=== PATIENT | female | born 1990 | race Caucasian/White ===

== ENCOUNTER 2017-04-27 17:29 | Emergency (ER) | payer OTHER ==
[~2017-04-27] VITALS: Ht 157.5 cm; Wt 56.5 kg
[2017-04-27 17:35] VITALS: TEMP 36.6; Ht 157.5 cm; Wt 56.5 kg
[2017-04-27] MEDS ORDERED: ONDANSETRON INJ 2 MG/ML 2 ML VIAL IV STA (17:50)
[2017-04-27] MEDS ORDERED: SODIUM CHLORIDE 0.9% 1000ML 1,000 ML IV STA (17:50)
[2017-04-27] MEDS ORDERED: FAMOTIDINE IV INJ 20 MG in DEXTROSE 5% 100ML 100 ML IV SCH (18:00)
[2017-04-27] MEDS ORDERED: PATIENT'S ALLERGY INFO NEEDS ENTERED SCH ×2 (18:15→18:30)
[2017-04-27] MEDS ORDERED: OPTIRAY 320 IV PRN (18:15)
[2017-04-27] MEDS ORDERED: BCPILLS PO (18:20)
[2017-04-27 19:11] LABS: BASO % 0.2 %; BASO ABS # 0.02 K/uL (0-0.2); EOS % 0.9 %; EOS ABS # 0.09 K/uL (0-0.5); HEMATOCRIT 42.3 % (37-47); IG# 0.01 K/uL (0.00-0.02); LYMPH % 26.1 %; LYMPH ABS # 2.58 K/uL (1.2-3.4); MEAN CELL VOLUME 82.8 fL (80-100); MEAN CORPUSCULAR HEMOGLOBIN 27.4 pg (25-34); MEAN CORPUSCULAR HGB CONC 33.1 g/dl (32-36); MEAN PLATELET VOLUME 9.6 fL (7.4-10.4); MONO % 6.5 %; MONO ABS # 0.64 K/uL (0.11-0.59); NEUT % 66.2 %; NEUT ABS # 6.56 K/uL (1.4-6.5); PLATELET COUNT 282 K/uL (130-400); RED CELL DISTRIBUTION WIDTH CV 14.2 % (11.5-14.5); RED CELL DISTRIBUTION WIDTH SD 43.2 fL (36.4-46.3)
--- NOTE | 2017-04-27 19:28 | EMERGENCY ROOM VISIT NOTE ---
History First contact with patient: 17:38 Chief Complaint: NAUSEA Stated Complaint: ABD PAIN, VOMITING, HAVE UTI Nursing Triage Summary: Pt. reports waking up at midnight with nausea, vomiting and abdominal pain. Went to [facility], diagnosed with UTI and sent to ED. History of Present Illness The patient is a 26 year old female who presents to the Emergency Room with complaints of abdominal pain, nausea/vomiting, and diarrhea. The patient states that she woke up around midnight with pain in her stomach, severe nausea and vomited twice and she has had progressively worsening abdominal pain that time with persistent nausea and some loose stools today. She went to [facility] to be evaluated, she states that they checked her urine and said that she had a UTI with blood in her urine, and sent her to the ED for further workup. The did not give her any medications prior to sending to the ED. She states the abdominal pain is constant, starts in the epigastric area and radiates down towards her belly button and to the sides, as well as pain in the left side of her back, achy, worse with movement, better with rest 5/10. She has not tried any medications for her symptoms today. She denies any fevers or chills, headache, neck pain or stiffness, chest pain, shortness of breath, bloody or black stools, dysuria, vaginal bleeding or abnormal discharge, or rash. Last menstrual period was 04/14, and she denies . She reports a history of cholecystectomy in the past, states "I have had stomach issues ever since my gallbladder surgery" and states she takes TUMS often for her symptoms. Review of Systems A complete 10 point review of systems was reviewed with the patient with pertinent positives and negatives as per history of present illness. All else were negative. Past Medical/Surgical History Cholecystectomy, gastric reflux Social History Smoking Status: Never Smoker Alcohol Use: none Drug Use: none Current/Historical Medications Scheduled Control Pills ( Control Pills), 1 TAB PO DAILY Ciprofloxacin Hcl (Cipro), 500 MG PO BID Allergies Reviewed in chart Physical Exam Vital Signs Date Time Temp Pulse Resp B/P (MAP) Pulse Ox O2 Delivery O2 Flow Rate FiO2 04/27/17 22:09 81 16 114/74 98 Room Air 04/27/17 20:50 97 16 106/61 98 Room Air 04/27/17 18:59 76 16 109/66 100 Room Air 04/27/17 17:35 36.6 89 20 126/71 100 Room Air Physical Exam CONSTITUTIONAL: Pleasant and cooperative. No acute distress, but does appear in pain throughout exam. Mildly dehydrated, but otherwise well appearing and well nourished. HEENT: Normocephalic, atraumatic. Pupils equal, round and reactive to light, EOMI. TMs normal. Pharynx normal. Tacky mucous membranes. NECK: Supple, full active range of motion without discomfort. RESPIRATORY: Clear to auscultation bilaterally with no wheezing, crackles, rhonchi or stridor. Equal expansion bilaterally. CARDIOVASCULAR: Regular rate and rhythm with no murmurs, rubs or gallops. Normal peripheral perfusion. No edema. GASTROINTESTINAL: Abdomen is moderately tender throughout, most tender in the epigastric and periumbilical area. Soft and nondistended. No guarding. Patient reports positive rebound tenderness palpation of the periumbilical region. Negative McBurney's, negative Rovsing. No palpable masses or HSM. Bowel sounds present in all quadrants. + Left CVA tenderness MUSCULOSKELETAL: Full range of motion of all joints without discomfort. INTEGUMENTARY: No rash or other significant dermatologic conditions noted. NEUROLOGIC: Alert and oriented X 4 with normal affect. Normal speech. No focal neurologic deficits noted. Normal strength and sensation in all 4 extremities. Normal gait observed. Medical Decision & Procedures ER Provider Diagnostic Interpretation: CT OF THE ABDOMEN AND PELVIS WITH CONTRAST CLINICAL HISTORY: Left flank pain and vomiting. Urinary tract infection. COMPARISON STUDY: None. TECHNIQUE: Following IV administration of 93 mL of Optiray-320, axial images of the abdomen and pelvis were obtained from the lung bases to the proximal femurs. Images were reviewed in the axial, sagittal, and coronal planes. IV contrast was administered without complication. A dose lowering technique was utilized adhering to the principles of ALARA. CT DOSE: 260.74 mGy.cm FINDINGS: Liver, spleen, adrenal glands, kidneys and pancreas are normal. There is no biliary or pancreatic ductal dilatation. There is no hydronephrosis. Both nephrograms are symmetric. There is no CT evidence of pyelonephritis. No urinary calculi are identified on this contrast enhanced study. Sensitivity for detection of urothelial lesions is diminished given lack of delayed phase imaging. Caliber and wall thickness of small and large bowel are normal. The appendix is not identified but there is no right lower quadrant inflammation. There is no lymphadenopathy. No suspicious skeletal lesions are present. There is no bowel obstruction. IMPRESSION: 1. No acute process within the abdomen or pelvis. 2. Normal CT appearance of the kidneys. No hydronephrosis. No calculi identified on contrast enhanced exam. No evidence for pyelonephritis. Laboratory Results 04/27/17 18:55 Red Blood Count 5.11, Mean Corpuscular Volume 82.8, Mean Corpuscular Hemoglobin 27.4, Mean Corpuscular Hemoglobin Concent 33.1, Mean Platelet Volume 9.6, Neutrophils (%) (Auto) 66.2, Lymphocytes (%) (Auto) 26.1, Monocytes (%) (Auto) 6.5, Eosinophils (%) (Auto) 0.9, Basophils (%) (Auto) 0.2, Neutrophils # (Auto) 6.56, Lymphocytes # (Auto) 2.58, Monocytes # (Auto) 0.64, Eosinophils # (Auto) 0.09, Basophils # (Auto) 0.02 04/27/17 18:55 Test 04/27/17 18:55 White Blood Count 9.90 K/uL (4.8-10.8) Red Blood Count 5.11 M/uL (4.2-5.4) Hemoglobin 14.0 g/dL (12.0-16.0) Hematocrit 42.3 % (37-47) Mean Corpuscular Volume 82.8 fL (80-100) Mean Corpuscular Hemoglobin 27.4 pg (25-34) Mean Corpuscular Hemoglobin Concent 33.1 g/dl (32-36) Platelet Count 282 K/uL (130-400) Mean Platelet Volume 9.6 fL (7.4-10.4) Neutrophils (%) (Auto) 66.2 % Lymphocytes (%) (Auto) 26.1 % Monocytes (%) (Auto) 6.5 % Eosinophils (%) (Auto) 0.9 % Basophils (%) (Auto) 0.2 % Neutrophils # (Auto) 6.56 K/uL (1.4-6.5) Lymphocytes # (Auto) 2.58 K/uL (1.2-3.4) Monocytes # (Auto) 0.64 K/uL (0.11-0.59) Eosinophils # (Auto) 0.09 K/uL (0-0.5) Basophils # (Auto) 0.02 K/uL (0-0.2) RDW Standard Deviation 43.2 fL (36.4-46.3) RDW Coefficient of Variation 14.2 % (11.5-14.5) Immature Granulocyte % (Auto) 0.1 % Immature Granulocyte # (Auto) 0.01 K/uL (0.00-0.02) Urine Color YELLOW Urine Appearance CLEAR (CLEAR) Urine pH 5.0 (4.5-7.5) Urine Specific [place] 1.029 (1.000-1.030) Urine Protein NEG (NEG) Urine Glucose (UA) NEG (NEG) Urine Ketones 1+ (NEG) Urine Occult Blood 1+ (NEG) Urine Nitrite NEG (NEG) Urine Bilirubin NEG (NEG) Urine Urobilinogen NEG (NEG) Urine Leukocyte Esterase SMALL (NEG) Urine WBC (Auto) 10-30 /hpf (0-5) Urine RBC (Auto) 10-30 /hpf (0-4) Urine Hyaline Casts (Auto) 5-10 /lpf (0-5) Urine Epithelial Cells (Auto) >30 /lpf (0-5) Urine Bacteria (Auto) 1+ (NEG) Urine Test NEG (NEG) Anion Gap 4.0 mmol/L (3-11) Est Creatinine Clear Calc Drug Dose 83.7 ml/min Estimated GFR () 116.1 Estimated GFR (Non- 100.2 BUN/Creatinine Ratio 13.1 (10-20) Calcium Level 9.6 mg/dl (8.5-10.1) Total Bilirubin 0.2 mg/dl (0.2-1) Direct Bilirubin < 0.1 mg/dl (0-0.2) Aspartate Amino Transf (AST/SGOT) 17 U/L (15-37) Alanine Aminotransferase (ALT/SGPT) 27 U/L (12-78) Alkaline Phosphatase 78 U/L (45-117) Total Protein 9.0 gm/dl (6.4-8.2) Albumin 4.0 gm/dl (3.4-5.0) Lipase 169 U/L (73-393) Medications Administered Medications (Trade) Dose Ordered Sig/Benita Route Start Time Stop Time Status Last Admin Dose Admin Sodium Chloride 1,000 ml @ 999 mls/hr Q1H1M STAT IV 04/27/17 17:50 04/27/17 18:50 DC 04/27/17 19:01 999 MLS/HR Ondansetron HCl (Zofran Inj) 4 mg NOW STAT IV 04/27/17 17:50 04/27/17 17:54 DC 04/27/17 19:01 4 MG Famotidine 20 mg/ Dextrose 102 ml @ 200 mls/hr Q12H IV 04/27/17 18:00 04/27/17 22:33 DC 04/27/17 19:01 200 MLS/HR Ceftriaxone Sodium (Rocephin Inj) 1 gm NOW STAT IV 04/27/17 21:34 04/27/17 21:38 DC 04/27/17 21:43 1 GM Ketorolac Tromethamine (Toradol Inj) 15 mg NOW STAT IV 04/27/17 21:34 04/27/17 21:38 DC 04/27/17 21:43 15 MG Medical Decision CC: Patient presenting with complaint of abdominal and flank pain, nausea/ vomiting/diarrhea Interpretation of Labs: No leukocytosis, no anemia, no significant loculated abnormalities, normal renal function, normal liver enzymes and lipase. UA consistent with UTI/cystitis, urine negative Differential Diagnosis: Includes, but not limited to gastroenteritis, gastritis , peptic ulcer disease, GERD, UTI, pyelonephritis, ureteral stone, enterocolitis , appendicitis, dehydration, among others. Medication Reconciliation: I attest that I have personally reviewed the patient' s current medication list. Vital signs review: I reviewed the patient's vital signs and interpret them as follows: T: Afebrile; BP: Normotensive; HR: Within normal limits; RR: Within normal limits; Pulse Ox: Within normal limits on room air. Blood pressure screening: The patient was found to have normal blood pressure on screening and does not require follow-up for repeat blood pressure check. Summary: Patient was evaluated at bedside, history and physical exam performed. Patient is alert and oriented, no acute distress but does appear uncomfortable and pain throughout exam. Patient is diffusely tender throughout the abdomen, most tender in the epigastric and periumbilical region, with some questionable rebound tenderness over the right lower quadrant. She also has left flank tenderness and positive CVA tenderness on the left. She appears mildly dehydrated, but is otherwise well-appearing. Given her abdominal and flank pain symptoms with report of blood in the urine, I feel evaluation for ureteral stone is warranted. Orders were placed at bedside for labs, UA, IV fluids for hydration, IV Zofran and Pepcid for nausea and stomach pain, CT abdomen/pelvis to evaluate for ureteral stone, pyelonephritis, appendicitis. Patient was offered something for pain, she states she is comfortable at this time and does not wish to have anything right now. Patient discussed with Dr. Stone, who agrees with my assessment and plan. Labs are as above, unremarkable. UA consistent with UTI, in setting of flank and abdominal pain, will treat for pyelonephritis. Patient was given a dose of IV Rocephin in the ED, Rx for ciprofloxacin sent to the pharmacy. On reassessment, the patient is now asking for something for pain. IV Toradol ordered. CT imaging negative for appendicitis, obstructing ureteral stone or any other acute abnormalities. Patient reassessed multiple times throughout ED stay, she reports improvement in her symptoms. She is tolerating oral fluids without difficulty. I updated the patient on all results and plan for discharge, and encouraged her to follow closely with her primary care provider. I also discussed strict return precautions should her symptoms worsen, she verbalized understanding. Patient was discharged home in stable condition and ambulatory. Impression Primary Impression: Pyelonephritis Departure Information Dispostion Home / Self-Care Condition GOOD Prescriptions Ciprofloxacin Hcl (CIPRO) 500 Mg Tab 500 MG PO BID for 7 Days, #14 TAB Prov: Asya Hurt CRNP 04/27/17 Referrals No Doctor, Assigned (PCP) Patient Instructions ED Kidney Infec Female, My [facility] Additional Instructions You have been treated in the Emergency Department for a Urinary Tract Infection (UTI) and pyelonephritis (kidney infection). You have been prescribed ciprofloxacin to be taken twice a day for 7 days. This is an antibiotic to treat your infection. All antibiotics have the potential to cause diarrhea, you should take a daily probiotic or eat yogurt regularly to help prevent this. Stop this medication and contact a medical provider if you were to develop any significant adverse side effects including: wheezing, shortness of breath, passing out, vomiting, or a diffuse rash. Always take antibiotics as directed and COMPLETE the ENTIRE course regardless of the improvement of your symptoms. For pain, you may take the following [id number] medications: - Tylenol 1000 mg every 8 hours as needed, not more than 3000 mg in 24 hours. - Ibuprofen 600 mg every 6-8 hours as needed, not more than 2400 mg in 24 hours. For past results, you can alternate between the Tylenol and the ibuprofen every 3-4 hours. Drink plenty of fluids to stay well hydrated. Please follow-up with your primary care provider in the next 2-3 days for recheck. Return to the emergency department if your symptoms worsen, including severe worsening abdominal or back pain, severe dizziness or passing out, fevers/chills , persistent nausea/vomiting, large amounts of blood in your urine, if you are unable to urinate for more than 8 hours, or any other concerns. Work Instructions Return To Work: 2 days
[2017-04-27 19:30] LABS: ALT/SGPT 27 U/L (12-78); AST/SGOT 17 U/L (15-37); BLOOD UREA NITROGEN 11 mg/dl (7-18); CALCIUM 9.6 mg/dl (8.5-10.1); CARBON DIOXIDE 29 mmol/L (21-32); CREATININE 0.82 mg/dl (0.60-1.20); GLUCOSE 86 mg/dl (70-99); LIPASE 169 U/L (73-393); POTASSIUM 3.7 mmol/L (3.5-5.1); SODIUM 136 mmol/L (136-145)
[2017-04-27 19:33] LABS: ALKALINE PHOSPHATASE 78 U/L (45-117)
--- NOTE | 2017-04-27 20:56 | DIAGNOSTIC IMAGING REPORT ---
CT OF THE ABDOMEN AND PELVIS WITH CONTRAST CLINICAL HISTORY: Left flank pain and vomiting. Urinary tract infection. COMPARISON STUDY: None. TECHNIQUE: Following IV administration of 93 mL of Optiray-320, axial images of the abdomen and pelvis were obtained from the lung bases to the proximal femurs. Images were reviewed in the axial, sagittal, and coronal planes. IV contrast was administered without complication. A dose lowering technique was utilized adhering to the principles of ALARA. CT DOSE: 260.74 mGy.cm FINDINGS: Liver, spleen, adrenal glands, kidneys and pancreas are normal. There is no biliary or pancreatic ductal dilatation. There is no hydronephrosis. Both nephrograms are symmetric. There is no CT evidence of pyelonephritis. No urinary calculi are identified on this contrast enhanced study. Sensitivity for detection of urothelial lesions is diminished given lack of delayed phase imaging. Caliber and wall thickness of small and large bowel are normal. The appendix is not identified but there is no right lower quadrant inflammation. There is no lymphadenopathy. No suspicious skeletal lesions are present. There is no bowel obstruction. IMPRESSION: 1. No acute process within the abdomen or pelvis. 2. Normal CT appearance of the kidneys. No hydronephrosis. No calculi identified on contrast enhanced exam. No evidence for pyelonephritis. Electronically signed by: Huy Allen M.D. 04/27/2017 8:46 PM Dictated Date/Time: 04/27/2017 8:40 PM
[2017-04-27] MEDS ORDERED: CEFTRIAXONE SOD INJ 1 GM ADDVIAL IV STA (21:34)
[2017-04-27] MEDS ORDERED: KETOROLAC TROMETHAMINE 30 MG/ML VIAL IV STA (21:34)
[2017-04-27] MEDS ORDERED: CIPR-255 PO (21:39)
[2017-04-27 22:09] VITALS: BP 114/74; PULSE 81; O2SAT 98
== END 2017-04-27 22:11 | disposition home or self-care (01) ==
LOC: C.EDB 17:30 → C.EDC 22:11
DX: N12 Tubulo-interstitial nephritis, not specified as acute or chronic (principal); N39.0 Urinary tract infection, site not specified; K21.9 Gastro-esophageal reflux disease without esophagitis; Z79.3 Long term (current) use of hormonal contraceptives

== ENCOUNTER → 2017-06-20 | Outpatient (CLI) | payer OTHER ==
[~2017-06-20] MED LIST: BCPILLS PO; CIPR-255 PO
--- NOTE | 2017-06-20 13:19 | DIAGNOSTIC IMAGING REPORT ---
PELVIC COMPLETE NON OB CLINICAL HISTORY: PELVIC PAIN,DYSURIA PAIN COMPARISON STUDY: None FINDINGS: The uterus measured 7 cm. The endometrial stripe measured 3 mm. The right ovary measured 2 cm maximum dimension with normal vascular flow. The left ovary measured 3.1 cm with normal vascular flow. There is no ultrasonographic evidence of ovarian torsion. It should be noted that ovarian torsion can be present with normal Doppler ultrasonographic findings. There was no evidence of pathologic free pelvic fluid. IMPRESSION: Normal study The above report was generated using voice recognition software. It may contain grammatical, syntax or spelling errors. Electronically signed by: Eric Flower M.D. 06/20/2017 1:18 PM Dictated Date/Time: 06/20/2017 1:17 PM
== END | disposition home or self-care (01) ==
LOC: C.ULTR 12:31
PROVIDERS: ATTEND Family Medicine
DX: R10.2 Pelvic and perineal pain (principal); R30.0 Dysuria

== ENCOUNTER → 2017-06-23 | Outpatient (CLI) | payer OTHER ==
[~2017-06-23] MED LIST changes: +OPTIRAY 300 IV PRN
--- NOTE | 2017-06-23 14:24 | DIAGNOSTIC IMAGING REPORT ---
IV PYELOGRAM CLINICAL HISTORY: Recurrent urinary tract infections. COMPARISON STUDY: Abdominal CT dated 04/27/2017. TECHNIQUE: An abdominal activities assistant radiograph is performed. IVP pyelogram was then performed following the IV administration of 100 cc of Optiray 300, tomographic images are acquired in the corticomedullary and excretory phases of enhancement. Overhead views of the renal collecting system and bladder were obtained in multiple obliquities both pre and post void. FINDINGS: The abdominal activities assistant radiograph shows a nonobstructed abdominal bowel gas pattern. No abnormal abdominal calcifications are identified. The bony structures appear intact. Following contrast administration the kidneys enhance and excrete symmetrically. There is no hydronephrosis. There are no filling defects identified within the renal pelvis or along the course of the ureters to suggest urothelial lesion. The bladder is normal as visualized. There is no significant post void residual. IMPRESSION: Normal IV pyelogram. Electronically signed by: Rafael Doe M.D. 06/23/2017 2:23 PM Dictated Date/Time: 06/23/2017 2:21 PM
== END | disposition home or self-care (01) ==
LOC: C.RAD 12:28
PROVIDERS: ATTEND Family Medicine
DX: R30.0 Dysuria (principal)

== ENCOUNTER 2017-08-26 11:02 | Emergency (ER) | payer OTHER ==
[~2017-08-26] VITALS: Ht 157.5 cm; Wt 55.7 kg
[~2017-08-26 11:02] MED LIST changes: -OPTIRAY 300 IV PRN
[2017-08-26 11:03] VITALS: TEMP 36.8; Ht 157.5 cm; Wt 55.7 kg
[2017-08-26] MEDS ORDERED: SODIUM CHLORIDE 0.9% 1000ML 1,000 ML IV STA (11:46)
[2017-08-26 12:07] LABS: BASO % 0.2 %; BASO ABS # 0.02 K/uL (0-0.2); EOS % 0.2 %; EOS ABS # 0.02 K/uL (0-0.5); HEMATOCRIT 41.7 % (37-47); HEMOGLOBIN 14.1 g/dL (12.0-16.0); IG# 0.02 K/uL (0.00-0.02); LYMPH % 18.5 %; LYMPH ABS # 1.91 K/uL (1.2-3.4); MEAN CELL VOLUME 81.9 fL (80-100); MEAN CORPUSCULAR HEMOGLOBIN 27.7 pg (25-34); MEAN CORPUSCULAR HGB CONC 33.8 g/dl (32-36); MEAN PLATELET VOLUME 9.5 fL (7.4-10.4); MONO % 5.3 %; MONO ABS # 0.55 K/uL (0.11-0.59); NEUT % 75.6 %; NEUT ABS # 7.78 K/uL (1.4-6.5); PLATELET COUNT 330 K/uL (130-400); RED CELL DISTRIBUTION WIDTH CV 14.5 % (11.5-14.5); RED CELL DISTRIBUTION WIDTH SD 43.8 fL (36.4-46.3)
[2017-08-26] MEDS ORDERED: KETOROLAC TROMETHAMINE 30 MG/ML VIAL IV STA (12:07)
[2017-08-26 12:24] LABS: BLOOD UREA NITROGEN 6 mg/dl (7-18); CALCIUM 8.9 mg/dl (8.5-10.1); CARBON DIOXIDE 29 mmol/L (21-32); CREATININE 0.79 mg/dl (0.60-1.20); GLUCOSE 90 mg/dl (70-99); POTASSIUM 3.4 mmol/L (3.5-5.1); SODIUM 138 mmol/L (136-145)
--- NOTE | 2017-08-26 12:26 | DIAGNOSTIC IMAGING REPORT ---
CHEST ONE VIEW PORTABLE HISTORY: 26 years-old Female Chest Pain acute atypical chest pain COMPARISON: CT abdomen and pelvis 04/27/2017 TECHNIQUE: Portable AP view of the chest FINDINGS: Cardiomediastinal and hilar silhouettes are within normal limits. There is no pneumothorax, pleural effusion, focal airspace consolidation or overt pulmonary edema. The bones of the chest appear grossly intact. IMPRESSION: No acute process. The above report was generated using voice recognition software. It may contain grammatical, syntax or spelling errors. Electronically signed by: Yury Lopes M.D. 08/26/2017 12:25 PM Dictated Date/Time: 08/26/2017 12:24 PM
[2017-08-26 12:35] LABS: CKMB < 0.5 ng/ml (0.5-3.6)
[2017-08-26 13:39] VITALS: BP 117/78; PULSE 90; O2SAT 100
--- NOTE | 2017-08-26 14:53 | EMERGENCY ROOM VISIT NOTE ---
History Report prepared by Luis Carlosibkarlos: Óscar Elliott Under the Supervision of: Dr. Abilio Terrazas D.O. First contact with patient: 11:17 Chief Complaint: CARDIAC ASSESSMENT Stated Complaint: CHEST PAIN, RAPID HEART RATE, NOT FEELING WELL History of Present Illness The patient is a 26 year old female who presents to the Emergency Room with complaints of constant chest pain beginning last night. She also complains of "feeling off". She states that she had an episode of heart palpitations (HR up to 129 according to her FitBit) last night before going to bed as well which started her pain. The patient describes her pain as an "ache". She also complains of nausea. She feels that her heart is still racing (HR in the 90's according to her FitBit). No other exacerbating or remitting factors. The patient denies chance of , and is on control. Pt denies headache , change in vision, fevers, shortness of breath, nausea, vomiting, diarrhea, pain with urination, and melena. She notes that she has had a persistent UTI for the past four months which finally resolved last week. She was on Bactrim most recently for this (1 month ago). Patient denies diabetes, hypertension, hyperlipidemia, CAD, or history of sudden at a young age. Patient denies swelling of calves, recent trips, history of immobilization or recent surgery, prior history of DVT, hemoptysis, history of malignancy, or history of smoking. Source of History: patient Onset: Last night Position: chest Quality: ache Timing: constant Associated Symptoms: + nausea, No fevers, No SOB, No vomiting, No melena, No diarrhea, No urinary symptoms Note: Positive: heart palpitations last night. Racing heart. Feeling "off". Review of Systems See HPI for pertinent positives & negatives. A total of 10 systems reviewed and were otherwise negative. Past Medical & Surgical Medical Problems: (1) No Known Active Medical Problems Family History No pertinent family history stated. Social History Smoking Status: Never Smoker Alcohol Use: none Drug Use: none Current/Historical Medications Scheduled Control Pills ( Control Pills), 1 TAB PO DAILY Allergies Coded Allergies: Penicillins (Unverified Allergy, Unknown, HIVES, 08/26/17) Physical Exam Vital Signs Date Time Temp Pulse Resp B/P (MAP) Pulse Ox O2 Delivery O2 Flow Rate FiO2 08/26/17 13:39 90 16 117/78 100 08/26/17 11:55 90 18 113/79 96 Room Air 08/26/17 11:10 99 Room Air 08/26/17 11:03 36.8 97 18 123/87 99 Room Air Physical Exam GENERAL: Sitting up in bed, alert, well appearing, well nourished, no distress, non-toxic EYE EXAM: normal conjunctiva. OROPHARYNX: no exudate, no erythema, lips, buccal mucosa, and tongue normal and mucous membranes are moist NECK: supple, no nuchal rigidity, no adenopathy, non-tender LUNGS: Clear to auscultation. Normal chest wall mechanics HEART: no murmurs, S1 normal and S2 normal ABDOMEN: abdomen soft, non-tender, normo-active bowel sounds, no masses, no rebound or guarding. BACK: Back is symmetrical on inspection and there is no deformity, no midline tenderness, no CVA tenderness. SKIN: no rashes and no bruising UPPER EXTREMITIES: upper extremities are grossly normal. Radial pulses are equal bilaterally. LOWER EXTREMITIES: Calves are equal bilaterally. NEURO EXAM: Normal sensorium, cranial nerves II-XII grossly intact, normal speech, no gross weakness of arms, no gross weakness of legs. Medical Decision & Procedures ER Provider Diagnostic Interpretation: Radiology results as stated below per my review and the radiologist's interpretation: CHEST ONE VIEW PORTABLE FINDINGS: Cardiomediastinal and hilar silhouettes are within normal limits. There is no pneumothorax, pleural effusion, focal airspace consolidation or overt pulmonary edema. The bones of the chest appear grossly intact. IMPRESSION: No acute process. The above report was generated using voice recognition software. It may contain grammatical, syntax or spelling errors. Electronically signed by: Yury Lopes M.D. 08/26/2017 12:25 PM Laboratory Results 08/26/17 11:55 Red Blood Count 5.09, Mean Corpuscular Volume 81.9, Mean Corpuscular Hemoglobin 27.7, Mean Corpuscular Hemoglobin Concent 33.8, Mean Platelet Volume 9.5, Neutrophils (%) (Auto) 75.6, Lymphocytes (%) (Auto) 18.5, Monocytes (%) (Auto) 5.3, Eosinophils (%) (Auto) 0.2, Basophils (%) (Auto) 0.2, Neutrophils # (Auto) 7.78, Lymphocytes # (Auto) 1.91, Monocytes # (Auto) 0.55, Eosinophils # (Auto) 0.02, Basophils # (Auto) 0.02 08/26/17 11:55 Test 08/26/17 11:55 White Blood Count 10.30 K/uL (4.8-10.8) Red Blood Count 5.09 M/uL (4.2-5.4) Hemoglobin 14.1 g/dL (12.0-16.0) Hematocrit 41.7 % (37-47) Mean Corpuscular Volume 81.9 fL (80-100) Mean Corpuscular Hemoglobin 27.7 pg (25-34) Mean Corpuscular Hemoglobin Concent 33.8 g/dl (32-36) Platelet Count 330 K/uL (130-400) Mean Platelet Volume 9.5 fL (7.4-10.4) Neutrophils (%) (Auto) 75.6 % Lymphocytes (%) (Auto) 18.5 % Monocytes (%) (Auto) 5.3 % Eosinophils (%) (Auto) 0.2 % Basophils (%) (Auto) 0.2 % Neutrophils # (Auto) 7.78 K/uL (1.4-6.5) Lymphocytes # (Auto) 1.91 K/uL (1.2-3.4) Monocytes # (Auto) 0.55 K/uL (0.11-0.59) Eosinophils # (Auto) 0.02 K/uL (0-0.5) Basophils # (Auto) 0.02 K/uL (0-0.2) RDW Standard Deviation 43.8 fL (36.4-46.3) RDW Coefficient of Variation 14.5 % (11.5-14.5) Immature Granulocyte % (Auto) 0.2 % Immature Granulocyte # (Auto) 0.02 K/uL (0.00-0.02) D-Dimer < 190 ug/L FEU (0-500) Anion Gap 6.0 mmol/L (3-11) Est Creatinine Clear Calc Drug Dose 86.9 ml/min Estimated GFR () 121.4 Estimated GFR (Non- 104.8 BUN/Creatinine Ratio 8.1 (10-20) Calcium Level 8.9 mg/dl (8.5-10.1) Total Creatine Kinase 80 U/L (26-192) Creatine Kinase MB < 0.5 ng/ml (0.5-3.6) Creatine Kinase MB Ratio (0-3.0) Troponin I < 0.015 ng/ml (0-0.045) Thyroid Stimulating Hormone (TSH) 2.230 uIu/ml (0.300-4.500) Laboratory results per my review. Medications Administered Medications (Trade) Dose Ordered Sig/Benita Route Start Time Stop Time Status Last Admin Dose Admin Sodium Chloride 1,000 ml @ 999 mls/hr Q1H1M STAT IV 08/26/17 11:46 08/26/17 12:46 DC 08/26/17 11:46 999 MLS/HR ECG Per My Interpretation Indication: chest pain Rate (beats per minute): 83 Rhythm: sinus rhythm Findings: other (Normal axis. No PVCs. ) ED Course ED COURSE: Vital signs were reviewed and appeared normal. The patients medical record was reviewed The above diagnostic studies were performed and reviewed. ED treatments and interventions as stated above. 1121: The patient was evaluated in room C10. A complete history and physical examination was performed. 1146: Ordered Sodium Chloride 1000 ml @ 999 mls/hr IV. 1207: Ordered Toradol Inj 30 mg IV. 1317: Upon reevaluation, the patient is resting comfortably. I discussed my findings with the patient and she understands and agrees with the treatment plan. Based on the patients age, coexisting illnesses, exam and lab findings the decision to treat as an outpatient was made. The patient remained stable while under my care. The patient appeared well at the time of discharge. Medical Decision Differential diagnoses includes but is not limited to pneumonia, bronchitis, COPD/Asthma exacerbation, pneumothorax, pulmonary embolism, congestive heart failure, acute coronary syndrome. Patient is a 26-year-old female with no significant past medical history the presents the ER for palpitations and chest pain which has been present since late last night. No other exacerbating or remitting factors. She notes she still has the symptoms currently. EKG shows a normal sinus rhythm without ectopy. Troponin was negative with pain that has been present for greater than 8 hours. D-dimer was negative. Chest x-ray unremarkable. Patient was updated at bedside was discharged to follow-up with PCP as an outpatient. I do not feel as though this is cardiac. She had no cardiac or PE risk factors. Nothing to suggest arrhythmia. Uncertain of the true etiology but she was discharged follow-up with PCP as an outpatient. Discussed with Pt concerning signs and symptoms to watch out for. Pt was instructed to follow up with their PCP and discussed with the patient their option to return to the ED at anytime for persistent or worsening symptoms. The appropriate anticipatory guidance and out-patient management, including indications for return to the emergency department, were explained at length to the patient and understood. Medication Reconcilliation Current Medication List: was personally reviewed by me Blood Pressure Screening Patient's blood pressure: Normal blood pressure Blood pressure disposition: Did not require urgent referral Impression Primary Impression: Palpitations Additional Impression: Chest pain Scribe Attestation The scribe's documentation has been prepared under my direction and personally reviewed by me in its entirety. I confirm that the note above accurately reflects all work, treatment, procedures, and medical decision making performed by me. Departure Information Dispostion Home / Self-Care Referrals Beny Wen DO (PCP) Forms IMPORTANT VISIT INFORMATION Patient Instructions Chest Pain - [facility], [facility] Additional Instructions Please follow up with your primary care doctor with in the next 24 hours. Any worsening of your symptoms, please return to the ED immediately. This includes any fevers greater than 100.4, worsening pain, chest pain, passing out, heart racing, shortness breath, persistent nausea, vomiting, unable to eat or drink, or any other concerning signs or symptoms from your standpoint. Problem Qualifiers Additional Impression: Chest pain Chest pain type: unspecified Qualified Codes: R07.9 - Chest pain, unspecified
== END 2017-08-26 13:40 | disposition home or self-care (01) ==
LOC: C.EDB 11:03 → C.EDC 13:40
DX: R00.2 Palpitations (principal); R07.9 Chest pain, unspecified; Z79.3 Long term (current) use of hormonal contraceptives; Z88.0 Allergy status to penicillin

== ENCOUNTER 2022-07-06 08:51 | Inpatient (IN) ==
[2022-07-06] MEDS ORDERED: OXYTOCIN 30 UNITS/500 ML BAG IV PRN ×2 (09:33→09:40)
[2022-07-06] MEDS ORDERED: LIDOCAINE 1% LOCAL 20 ML VIAL INFIL PRN (09:33)
--- NOTE | 2022-07-06 09:35 | History & Physical Report ---
Date of Service July 06, 2022 Assessment & Plan (1) with 37 weeks completed gestation: (2) PROM (premature rupture of membranes): Plan fetus category one. no labor, minimal contractions. Offered expectant management for 6 hours +/- po cytotec or starting pitocin now. patient would like to do cytotec and ambulate for now. Understands may need to consider pitocin if no progress. History of Present Illness Chief Complaint: lof Primary Care Provider: Beny Rubio DO Patient is a 31yowf with iup at 37 4/7 weeks who presents to labor and delivery complaining of lof starting at 7am, clear, copious. no real contractions. +fm. and Delivery Plans +Covid 06/19/22, sx's began 06/11/22 Velamentous Cord Insertion (RESOLVED) *Growth US Q4wks @28wks *Weekly NSTs @36wks *[place]FM consult (04/02/22 @ [facility] [place]not velamentous, is posterior plac w/ anterior succenturiate lobe -Repeat growth US in 4 weeks. OB Labs: Blood Type O Positive 12/12/21 Antibody Screen NEGATIVE 12/12/21 Hemoglobin 10.7 g/dl (12.0-16.0) L 05/06/22 Hematocrit 33.0 % (34.1-44.9) L 05/06/22 Mean Corpuscular Volume 81.4 fL (80.0-100.0) 12/12/21 Platelet Count 305 K/uL (130-400) 12/12/21 Varicella-Zoster IgG Antibody 2228.00 INDEX 12/31/18 Rubella IgG Antibody Immune (Immune) 12/12/21 Rapid Plasma Reagin Nonreactive (Nonreactive) 12/12/21 Hepatitis B Surface Antigen. NON-REACTIVE (NON-REACTIVE) 12/12/21 Hepatitis C Antibody (EIA) NON-REACTIVE (NON-REACTIVE) 12/12/21 HIV (1&2) Ag and Ab Confirmation NON-REACTIVE (NON-REACTIVE) 12/12/21 Glucose 1 Hour 50 gm Load 137 mg/dl (70-130) H 05/06/22 Maternal Serum Alpha Fetoprotein 57.9 ng/mL 02/11/22 OB Optional Labs: Chlamydia trachomatis RNA NOT DETECTED (NOT DETECTED) 12/12/21 Neisseria gonorrhoeae RNA NOT DETECTED (NOT DETECTED) 12/12/21 Thyroid Stimulating Hormone (TSH) 1.220 uIu/ml (0.300-4.500) 07/13/20 Alpha Fetoprotein Triple Screen SEE NOTE 02/11/22 Labs Reviewed: afp neg--[facility] low risk panorama--[facility] cf/sma neg--[facility] gbs neg Allergies Allergy/AdvReac Type Severity Reaction Status Date / Time Penicillins Allergy Intermediate HIVES Verified 07/06/22 09:14 Home Medications Medication Instructions Recorded Confirmed Type cetirizine [Zyrtec] 1 tab PO DAILY 04/11/20 07/06/22 History albuterol sulfate 90 mcg/actuation 2 puff inhalation Q4H PRN 08/04/20 07/06/22 Rx aerosol inhaler shortness of breath #1 inhaler prenat.vits,malia,[id number] 1 tab PO DAILY 12/07/21 07/06/22 History Patient History Medical History Acid reflux Syncope and collapse Tension headache, chronic Surgical History History of cholecystectomy History of esophagogastroduodenoscopy (EGD) [place] teeth extracted Family History Grandmother (Paternal) Breast cancer Grandfather (Maternal) Myocardial infarction Family history of diabetes mellitus Mother Thyroid disease Other No family history of adverse response to anesthesia Denies family history of Ovarian cancer Prostate cancer Lung cancer Colorectal cancer Social History Smoking Status: Never smoker Tobacco Type: Cigarettes Second Hand Exposure: No; Hx Alcohol Use: No Hx Substance Use: No Preferred Language: Urdu Communication Ability: Effective Visual Impairment: Limited Hearing Ability: Normal Feather Stitcher Required: No Beliefs That Will Affect Care: None marital status: marital status details: [place] (29) [phone] Current Living Situation: Spouse Current Living Situation Comment: LIVES WITH SPOUSE, 1 cat, spouse to change litter. current occupational status: employed current occupation: [employer] How many Children do You have: 0 Feels Safe at Home: Yes Childhood Exposure to Second-Hand Smoke: No caffeine: No Dental Care, Regularly: Yes Physical Activity Frequency: 1-2 Times per Week Seatbelt Use: always Sunscreen Use: Yes Assistive Devices: Glasses OB History g1--present CHIEF PILOT History noncontributory Physical Exam Constitutional: WD/WN, vitals as above Gastrointestinal (Abdomen): soft, gravid, nt Psychiatric: A+Ox3, euthymic affect Genitourinary: patient sitting on a soaked chux cx--1/l/h toco--leonard efm--150s with mod variability, accels to 170s, no decels Results & Data Vital Signs (Past 12 Hours) Vital Signs Pulse BP 07/06/22 09:05 102 H 125/80 Coding Level of Care Code None Diagnoses with 37 weeks completed gestation Z3A.37 PROM (premature rupture of membranes) O42.90
[2022-07-06] MEDS ORDERED: miSOPROStoL 50 MCG TAB PO ONE (09:46)
[2022-07-06 10:06] LABS: Hemoglobin 11.7 g/dl (12.0-16.0); Mean Corpuscular Hemoglobin 26.7 pg (25.0-34.0); Mean Corpuscular Hgb Conc 32.5 g/dL (32.0-36.0); Mean Platelet Volume 10.7 fL (9.4-12.4); Platelet Count 247 K/uL (130-400); RDW Coefficient of Variation 15.2 % (11.5-14.5); RDW Standard Deviation 45.9 fL (36.4-46.3); Red Blood Count 4.39 M/uL (4.20-5.40); White Blood Count 12.33 K/ul (4.8-10.8)
--- NOTE | 2022-07-06 13:43 | Labor Progress Brief Note ---
Date of Service July 06, 2022 Subjective Patient notes more contractions, some are more painful Assessment & Plan (1) PROM (premature rupture of membranes): (2) with 37 weeks completed gestation: Plan Good response to cytotec. Offered expectant management vs. pitocin. Ok to proceed with pit. epidural on demand. fetus category one. anticipate . Admission and Anticipated Discharge Date Admission Date: July 06, 2022 Physical Exam Physical Exam: cx--2-3/75/-2 toco--q66-4rpg efm--140s with mod variabiltiy, accels to 160s, no decels Results & Data Vital Signs (Past 12 Hours) Vital Signs Temp Pulse Resp BP 07/06/22 09:20 36.8 C 102 H 20 125/80 07/06/22 13:33 87 07/06/22 13:33 123/78 07/06/22 12:15 18 07/06/22 12:15 36.6 C 18 07/06/22 11:15 18 07/06/22 11:15 36.7 C 18 07/06/22 10:15 18 07/06/22 10:15 36.7 C 18 07/06/22 10:16 91 H 07/06/22 10:16 126/75 07/06/22 09:05 36.9 C 102 H 20 125/80 Coding Level of Care Code None Diagnoses PROM (premature rupture of membranes) O42.90 with 37 weeks completed gestation Z3A.37
[2022-07-06] MEDS: LACTATED RINGER'S 1,000 ML IV PRN ×3 (14:30→20:42)
[2022-07-06] MEDS ORDERED: ePHEDrine sulfate 50 MG/ML AMP ONE (16:06)
[2022-07-06] MEDS ORDERED: fentaNYL citrate PF 100 MCG/2 ML VIAL ONE (16:06)
[2022-07-06] MEDS ORDERED: fentaNYL 2MCG/ML ROPIVACAINE 1.25MG/ML 100 ML BAG EPI ONE (16:07)
[2022-07-06] MEDS ORDERED: LIDOCAINE 2%/EPINEPHRINE 1:200,000 20 ML PF ONE (16:07)
[2022-07-06] MEDS ORDERED: SODIUM CHLORIDE 0.9% PF INJ 10 ML VIAL ONE (16:07)
[2022-07-06] MEDS ORDERED: BUPIVACAINE 0.25% PF 30 ML VIAL ONE (16:07)
--- NOTE | 2022-07-06 17:21 | Anesthesiology Consultation ---
Date of Service July 06, 2022 Assessment & Plan Chart Review Chart Review: Acceptable Risk for Labor Epidural Consults Requested none History Height/Weight Height: 5 ft 2 in Weight: 71.214 kg Allergies Allergy/AdvReac Type Severity Reaction Status Date / Time Penicillins Allergy Intermediate HIVES Verified 07/06/22 09:14 Medications Home Medications Medication Instructions Recorded Confirmed Last Taken cetirizine [Zyrtec] 1 tab PO DAILY 04/11/20 07/06/22 07/05/22 18:00 albuterol sulfate 90 mcg/actuation 2 puff inhalation Q4H PRN 08/04/20 07/06/22 Unknown aerosol inhaler shortness of breath #1 inhaler prenat.vits,malia,[id number] 1 tab PO DAILY 12/07/21 07/06/22 07/05/22 18:00 Active Medications Generic Name Dose Route Start Last Admin Trade Name Freq PRN Reason Stop Dose Admin Lactated Ringer's 1,000 mls @ 125 mls/hr 07/06/22 09:33 07/06/22 16:27 Lr IV 07/08/22 09:32 125 mls/hr .Q8H PRN Administration L&D Protocol Protocol Oxytocin 30 units in 500 mls @ 6 mls/hr 07/06/22 09:40 07/06/22 17:00 Pitocin IV 07/08/22 09:39 0.48 units/hr .Q24H PRN 8 mls/hr Labor Induction/Augmentation Titration Protocol 0.36 UNITS/HR Past Medical History Medical History Acid reflux Syncope and collapse Tension headache, chronic Past Family History Family History Grandmother (Paternal) Breast cancer Grandfather (Maternal) Myocardial infarction Family history of diabetes mellitus Mother Thyroid disease Other No family history of adverse response to anesthesia Denies family history of Ovarian cancer Prostate cancer Lung cancer Colorectal cancer Past Surgical History Surgical History History of cholecystectomy History of esophagogastroduodenoscopy (EGD) [place] teeth extracted Social History Smoking Status: Never smoker Hx Alcohol Use: No alcohol intake frequency: holidays/special occasions only Hx Substance Use: No substance use type: does not use Physical Exam Vital Signs Last Vital Signs Temp 37.1 C 07/06/22 16:25 Pulse 92 H 07/06/22 17:19 Resp 18 07/06/22 16:25 BP 110/65 07/06/22 17:16 Pulse Ox 93 07/06/22 17:19 Testing Laboratory Results 07/06/22 09:37 Blood Type O Positive 07/06/22 09:37 Antibody Screen NEGATIVE 07/06/22 09:37
[2022-07-06] MEDS ORDERED: ePHEDrine sulfate 50 MG/ML AMP IV PRN (17:32)
[2022-07-06] MEDS ORDERED: NALBUPHINE HCL INJ 10 MG/ML AMP IV PRN (17:32)
[2022-07-06] MEDS ORDERED: NALOXONE HCL 1 MG in SODIUM CHLORIDE 0.9% 1000ML 1,000 ML IV PRN (17:32)
[2022-07-06] MEDS ORDERED: diphenhydrAMINE 50 MG/ML VIAL IV PRN (17:32)
[2022-07-06] MEDS ORDERED: ONDANSETRON INJ 2 MG/ML 2 ML VIAL IV PRN (17:32)
[2022-07-06] MEDS ORDERED: fentaNYL 2MCG/ML ROPIVACAINE 1.25MG/ML 100 ML BAG EPI PRN (17:32)
[2022-07-06] MEDS ORDERED: NALOXONE HCL 0.4 MG/1 ML VIAL/CARP IV PRN (17:32)
--- NOTE | 2022-07-06 17:58 | Labor Progress Brief Note ---
Date of Service July 06, 2022 Subjective comfortable with epidural Assessment & Plan (1) PROM (premature rupture of membranes): (2) with 37 weeks completed gestation: Plan continue current management. Fetus category one. anticipate . Admission and Anticipated Discharge Date Admission Date: July 06, 2022 Physical Exam Physical Exam: cx--/-3 toco--q2-3min, pit at 8 efm--140s with mod variability, accels present, no decels Results & Data Vital Signs (Past 12 Hours) Vital Signs Temp Pulse Resp BP Pulse Ox 07/06/22 09:20 36.8 C 102 H 20 125/80 07/06/22 17:54 93 07/06/22 17:54 89 07/06/22 17:49 93 07/06/22 17:50 94 07/06/22 17:49 95 H 07/06/22 17:50 98 H 07/06/22 17:44 93 07/06/22 17:44 89 07/06/22 17:44 114/68 07/06/22 17:39 93 07/06/22 17:39 92 H 07/06/22 17:34 93 07/06/22 17:35 94 07/06/22 17:34 97 H 07/06/22 17:35 88 07/06/22 17:29 94 07/06/22 17:29 96 H 07/06/22 17:15 18 07/06/22 17:15 37.5 C 18 07/06/22 17:28 96 H 07/06/22 17:28 117/71 07/06/22 17:24 93 07/06/22 17:24 88 07/06/22 17:21 94 07/06/22 17:21 88 07/06/22 17:19 93 07/06/22 17:19 92 H 07/06/22 17:16 92 H 07/06/22 17:16 110/65 07/06/22 17:14 94 07/06/22 17:14 95 H 07/06/22 17:14 94 07/06/22 17:14 99 H 07/06/22 17:09 94 07/06/22 17:09 104 H 07/06/22 17:06 94 07/06/22 17:06 93 H 07/06/22 17:06 121/59 L 03/18/23 17:04 94 07/06/22 17:04 89 07/06/22 17:01 93 H 07/06/22 17:01 141/68 H 07/06/22 17:00 94 07/06/22 17:00 93 H 07/06/22 17:00 137/81 07/06/22 16:59 96 07/06/22 16:59 100 H 07/06/22 16:54 97 07/06/22 16:54 95 H 07/06/22 16:49 95 07/06/22 16:49 99 H 07/06/22 16:48 94 07/06/22 16:48 92 H 07/06/22 16:44 94 07/06/22 16:44 91 H 07/06/22 16:25 18 07/06/22 16:25 37.1 C 18 07/06/22 16:41 94 07/06/22 16:41 94 H 07/06/22 16:39 94 07/06/22 16:39 96 H 07/06/22 16:34 94 07/06/22 16:34 93 H 07/06/22 16:29 94 07/06/22 16:29 96 H 07/06/22 16:24 95 07/06/22 16:24 101 H 07/06/22 16:25 94 H 07/06/22 16:25 125/76 07/06/22 16:24 94 07/06/22 16:24 98 H 07/06/22 15:27 18 07/06/22 15:27 36.8 C 18 07/06/22 15:27 92 H 07/06/22 15:27 125/74 07/06/22 14:35 18 07/06/22 14:35 36.8 C 18 07/06/22 14:35 97 H 07/06/22 14:35 134/78 07/06/22 13:32 18 07/06/22 13:32 36.8 C 18 07/06/22 13:33 87 07/06/22 13:33 123/78 07/06/22 12:15 18 07/06/22 12:15 36.6 C 18 07/06/22 11:15 18 07/06/22 11:15 36.7 C 18 07/06/22 10:15 18 07/06/22 10:15 36.7 C 18 07/06/22 10:16 91 H 07/06/22 10:16 126/75 07/06/22 09:05 36.9 C 102 H 20 125/80 Coding Level of Care Code None Diagnoses PROM (premature rupture of membranes) O42.90 with 37 weeks completed gestation Z3A.37
--- NOTE | 2022-07-06 21:30 | Labor Progress Brief Note ---
Date of Service July 06, 2022 Subjective comfortable [facility] bladder pressure Assessment & Plan (1) with 37 weeks completed gestation: (2) PROM (premature rupture of membranes): Plan Making progress. fetus reassuring category 2. head very applied to cervix, so suspect mostly early . anticipate . Admission and Anticipated Discharge Date Admission Date: July 06, 2022 Physical Exam Physical Exam: cx--7-8/100/-1 toco--q2-4min, pit at 9 efm--130s with mod variabiltiy, small accels, variable/early with contractions Results & Data Vital Signs (Past 12 Hours) Vital Signs Temp Pulse Resp BP Pulse Ox 07/06/22 21:24 94 07/06/22 21:24 77 07/06/22 21:19 95 07/06/22 21:19 73 07/06/22 21:14 94 07/06/22 21:14 83 07/06/22 21:12 86 07/06/22 21:12 103/61 07/06/22 21:09 94 07/06/22 21:09 87 07/06/22 21:04 94 07/06/22 21:04 86 07/06/22 20:00 16 07/06/22 20:00 36.8 C 16 07/06/22 20:59 95 07/06/22 20:59 78 07/06/22 20:57 85 07/06/22 20:57 107/64 07/06/22 20:54 95 07/06/22 20:54 79 07/06/22 20:49 95 07/06/22 20:49 77 07/06/22 20:44 95 07/06/22 20:44 84 07/06/22 20:42 84 07/06/22 20:42 111/62 07/06/22 20:39 95 07/06/22 20:39 82 07/06/22 20:34 95 07/06/22 20:34 79 07/06/22 20:29 95 07/06/22 20:29 81 07/06/22 20:27 80 07/06/22 20:27 116/66 07/06/22 20:24 95 07/06/22 20:24 83 07/06/22 20:19 94 07/06/22 20:19 84 07/06/22 20:14 97 07/06/22 20:14 82 07/06/22 20:09 94 07/06/22 20:09 79 07/06/22 20:04 95 07/06/22 20:04 84 07/06/22 19:59 94 07/06/22 19:59 82 07/06/22 19:57 83 07/06/22 19:57 127/73 07/06/22 19:54 94 07/06/22 19:54 96 H 07/06/22 19:49 94 07/06/22 19:50 93 07/06/22 19:49 90 07/06/22 19:50 85 07/06/22 19:44 94 07/06/22 19:44 83 07/06/22 19:43 93 07/06/22 19:43 88 07/06/22 19:43 110/61 07/06/22 19:39 94 07/06/22 19:39 85 07/06/22 19:36 93 07/06/22 19:36 92 H 07/06/22 19:34 95 07/06/22 19:34 79 07/06/22 19:29 94 07/06/22 19:29 89 07/06/22 19:27 76 07/06/22 19:27 111/66 07/06/22 19:24 94 07/06/22 19:24 78 07/06/22 19:19 94 07/06/22 19:19 81 07/06/22 19:00 16 07/06/22 19:00 36.8 C 16 07/06/22 19:14 93 07/06/22 19:15 93 07/06/22 19:14 84 07/06/22 19:15 87 07/06/22 19:12 83 07/06/22 19:12 131/77 07/06/22 19:09 95 07/06/22 19:09 78 07/06/22 19:07 93 07/06/22 19:07 78 07/06/22 19:04 94 07/06/22 19:04 76 07/06/22 19:02 94 07/06/22 19:02 76 07/06/22 18:59 94 07/06/22 18:59 75 07/06/22 18:56 94 07/06/22 18:56 80 0318/23 18:57 79 07/06/22 18:57 130/73 07/06/22 18:54 94 07/06/22 18:54 86 07/06/22 18:51 94 07/06/22 18:51 85 07/06/22 18:49 93 07/06/22 18:49 83 07/06/22 18:45 18 07/06/22 18:45 36.7 C 18 07/06/22 18:45 94 07/06/22 18:45 80 07/06/22 18:44 92 07/06/22 18:44 92 H 07/06/22 18:42 90 07/06/22 18:42 124/72 07/06/22 18:39 93 07/06/22 18:39 87 07/06/22 18:34 94 07/06/22 18:34 89 07/06/22 18:29 94 07/06/22 18:29 81 07/06/22 18:28 82 07/06/22 18:28 122/71 07/06/22 18:27 94 07/06/22 18:27 87 07/06/22 18:24 94 07/06/22 18:24 85 07/06/22 18:19 94 07/06/22 18:19 80 07/06/22 18:15 94 07/06/22 18:15 81 07/06/22 18:14 94 07/06/22 18:14 86 07/06/22 18:12 77 07/06/22 18:12 115/70 07/06/22 18:09 94 07/06/22 18:09 81 07/06/22 17:57 18 07/06/22 17:57 36.9 C 18 07/06/22 18:06 94 07/06/22 18:06 82 07/06/22 18:04 93 07/06/22 18:04 79 07/06/22 17:59 94 07/06/22 17:59 81 07/06/22 17:58 80 07/06/22 17:58 116/70 07/06/22 17:54 93 07/06/22 17:54 89 07/06/22 17:49 93 07/06/22 17:50 94 07/06/22 17:49 95 H 07/06/22 17:50 98 H 07/06/22 17:44 93 07/06/22 17:44 89 07/06/22 17:44 114/68 07/06/22 17:39 93 07/06/22 17:39 92 H 07/06/22 17:34 93 07/06/22 17:35 94 07/06/22 17:34 97 H 07/06/22 17:35 88 07/06/22 17:29 94 07/06/22 17:29 96 H 07/06/22 17:15 18 07/06/22 17:15 37.5 C 18 07/06/22 17:28 96 H 07/06/22 17:28 117/71 07/06/22 17:24 93 07/06/22 17:24 88 07/06/22 17:21 94 07/06/22 17:21 88 07/06/22 17:19 93 07/06/22 17:19 92 H 07/06/22 17:16 92 H 07/06/22 17:16 110/65 07/06/22 17:14 94 07/06/22 17:14 95 H 07/06/22 17:14 94 07/06/22 17:14 99 H 07/06/22 17:09 94 07/06/22 17:09 104 H 07/06/22 17:06 94 07/06/22 17:06 93 H 07/06/22 17:06 121/59 L 07/06/22 17:04 94 07/06/22 17:04 89 07/06/22 17:01 93 H 07/06/22 17:01 141/68 H 07/06/22 17:00 94 07/06/22 17:00 93 H 07/06/22 17:00 137/81 07/06/22 16:59 96 07/06/22 16:59 100 H 07/06/22 16:54 97 07/06/22 16:54 95 H 07/06/22 16:49 95 07/06/22 16:49 99 H 07/06/22 16:48 94 07/06/22 16:48 92 H 07/06/22 16:44 94 07/06/22 16:44 91 H 07/06/22 16:25 18 07/06/22 16:25 37.1 C 18 07/06/22 16:41 94 07/06/22 16:41 94 H 07/06/22 16:39 94 07/06/22 16:39 96 H 07/06/22 16:34 94 07/06/22 16:34 93 H 07/06/22 16:29 94 07/06/22 16:29 96 H 07/06/22 16:24 95 07/06/22 16:24 101 H 07/06/22 16:25 94 H 07/06/22 16:25 125/76 07/06/22 16:24 94 07/06/22 16:24 98 H 07/06/22 15:27 18 07/06/22 15:27 36.8 C 18 07/06/22 15:27 92 H 07/06/22 15:27 125/74 07/06/22 14:35 18 07/06/22 14:35 36.8 C 18 07/06/22 14:35 97 H 07/06/22 14:35 134/78 07/06/22 13:32 18 07/06/22 13:32 36.8 C 18 07/06/22 13:33 87 07/06/22 13:33 123/78 07/06/22 12:15 18 07/06/22 12:15 36.6 C 18 07/06/22 11:15 18 07/06/22 11:15 36.7 C 18 07/06/22 10:15 18 07/06/22 10:15 36.7 C 18 07/06/22 10:16 91 H 07/06/22 10:16 126/75 Coding Level of Care Code None Diagnoses with 37 weeks completed gestation Z3A.37 PROM (premature rupture of membranes) O42.90
--- NOTE | 2022-07-07 00:07 | Labor Progress Brief Note ---
Date of Service July 07, 2022 Subjective patient has started to push Assessment & Plan (1) with 37 weeks completed gestation: Plan continue second stage. fetus reassuring. anticipate . Admission and Anticipated Discharge Date Admission Date: July 06, 2022 Physical Exam Physical Exam: cx--c/c/+2 toco--q2-3min efm--120s wtih mod variability, variables with pushing Results & Data Vital Signs (Past 12 Hours) Vital Signs Temp Pulse Resp BP Pulse Ox 07/06/22 22:05 36.9 C 16 07/07/22 00:02 108 H 90 07/06/22 23:59 97 07/06/22 23:59 110 H 07/06/22 23:57 93 07/06/22 23:57 112 H 07/06/22 23:57 120/66 07/06/22 23:54 100 07/06/22 23:54 129 H 07/06/22 23:52 91 07/06/22 23:52 98 H 07/06/22 23:49 98 07/06/22 23:49 100 H 07/06/22 23:44 95 07/06/22 23:44 107 H 07/06/22 23:42 96 H 07/06/22 23:42 118/75 07/06/22 23:39 95 07/06/22 23:39 90 07/06/22 23:34 96 07/06/22 23:34 104 H 07/06/22 23:29 96 07/06/22 23:29 90 07/06/22 23:27 88 07/06/22 23:27 101/57 L 07/06/22 23:24 94 07/06/22 23:24 90 07/06/22 23:19 95 07/06/22 23:19 87 07/06/22 23:14 95 07/06/22 23:14 81 07/06/22 23:12 85 07/06/22 23:12 107/63 07/06/22 23:09 95 07/06/22 23:09 94 H 07/06/22 23:05 16 07/06/22 23:05 36.9 C 16 07/06/22 23:04 97 07/06/22 23:04 88 07/06/22 22:59 95 07/06/22 22:59 78 07/06/22 22:57 87 07/06/22 22:57 103/60 07/06/22 22:54 95 07/06/22 22:54 76 07/06/22 22:49 95 07/06/22 22:49 83 07/06/22 22:44 95 07/06/22 22:44 89 07/06/22 22:42 79 07/06/22 22:42 111/66 07/06/22 22:39 95 07/06/22 22:39 86 07/06/22 22:34 95 07/06/22 22:34 86 07/06/22 22:29 95 07/06/22 22:29 88 07/06/22 22:27 78 07/06/22 22:27 120/72 07/06/22 22:24 95 07/06/22 22:24 78 07/06/22 22:19 95 07/06/22 22:19 75 07/06/22 22:14 96 07/06/22 22:14 81 07/06/22 22:12 90 07/06/22 22:12 111/69 07/06/22 22:09 96 07/06/22 22:09 85 07/06/22 22:04 97 07/06/22 22:04 80 07/06/22 21:59 93 07/06/22 21:59 85 07/06/22 21:57 76 07/06/22 21:57 122/74 07/06/22 21:54 94 07/06/22 21:54 79 07/06/22 21:49 95 07/06/22 21:49 76 07/06/22 21:44 95 07/06/22 21:44 82 07/06/22 21:42 88 07/06/22 21:42 120/75 07/06/22 21:39 95 07/06/22 21:39 77 07/06/22 21:34 96 07/06/22 21:34 86 07/06/22 21:32 16 07/06/22 21:32 36.7 C 16 07/06/22 21:29 98 07/06/22 21:29 77 07/06/22 21:28 81 07/06/22 21:28 125/77 07/06/22 21:24 94 07/06/22 21:24 77 07/06/22 21:19 95 07/06/22 21:19 73 07/06/22 21:14 94 07/06/22 21:14 83 07/06/22 21:12 86 03 21:12 103/61 07/06/22 21:09 94 07/06/22 21:09 87 07/06/22 21:04 94 07/06/22 21:04 86 07/06/22 20:00 16 07/06/22 20:00 36.8 C 16 07/06/22 20:59 95 07/06/22 20:59 78 07/06/22 20:57 85 07/06/22 20:57 107/64 07/06/22 20:54 95 07/06/22 20:54 79 07/06/22 20:49 95 07/06/22 20:49 77 07/06/22 20:44 95 07/06/22 20:44 84 07/06/22 20:42 84 07/06/22 20:42 111/62 07/06/22 20:39 95 07/06/22 20:39 82 07/06/22 20:34 95 07/06/22 20:34 79 07/06/22 20:29 95 07/06/22 20:29 81 07/06/22 20:27 80 07/06/22 20:27 116/66 07/06/22 20:24 95 07/06/22 20:24 83 07/06/22 20:19 94 07/06/22 20:19 84 07/06/22 20:14 97 07/06/22 20:14 82 07/06/22 20:09 94 07/06/22 20:09 79 07/06/22 20:04 95 07/06/22 20:04 84 07/06/22 19:59 94 07/06/22 19:59 82 07/06/22 19:57 83 07/06/22 19:57 127/73 07/06/22 19:54 94 07/06/22 19:54 96 H 07/06/22 19:49 94 07/06/22 19:50 93 07/06/22 19:49 90 07/06/22 19:50 85 07/06/22 19:44 94 07/06/22 19:44 83 07/06/22 19:43 93 07/06/22 19:43 88 07/06/22 19:43 110/61 07/06/22 19:39 94 07/06/22 19:39 85 07/06/22 19:36 93 07/06/22 19:36 92 H 07/06/22 19:34 95 07/06/22 19:34 79 07/06/22 19:29 94 07/06/22 19:29 89 07/06/22 19:27 76 07/06/22 19:27 111/66 07/06/22 19:24 94 07/06/22 19:24 78 07/06/22 19:19 94 07/06/22 19:19 81 07/06/22 19:00 16 07/06/22 19:00 36.8 C 16 07/06/22 19:14 93 07/06/22 19:15 93 07/06/22 19:14 84 07/06/22 19:15 87 07/06/22 19:12 83 07/06/22 19:12 131/77 07/06/22 19:09 95 07/06/22 19:09 78 07/06/22 19:07 93 07/06/22 19:07 78 07/06/22 19:04 94 07/06/22 19:04 76 07/06/22 19:02 94 07/06/22 19:02 76 07/06/22 18:59 94 07/06/22 18:59 75 07/06/22 18:56 94 07/06/22 18:56 80 07/06/22 18:57 79 07/06/22 18:57 130/73 07/06/22 18:54 94 07/06/22 18:54 86 07/06/22 18:51 94 07/06/22 18:51 85 07/06/22 18:49 93 07/06/22 18:49 83 07/06/22 18:45 18 07/06/22 18:45 36.7 C 18 07/06/22 18:45 94 07/06/22 18:45 80 07/06/22 18:44 92 07/06/22 18:44 92 H 07/06/22 18:42 90 07/06/22 18:42 124/72 07/06/22 18:39 93 07/06/22 18:39 87 07/06/22 18:34 94 07/06/22 18:34 89 07/06/22 18:29 94 07/06/22 18:29 81 07/06/22 18:28 82 07/06/22 18:28 122/71 07/06/22 18:27 94 07/06/22 18:27 87 07/06/22 18:24 94 07/06/22 18:24 85 07/06/22 18:19 94 07/06/22 18:19 80 07/06/22 18:15 94 07/06/22 18:15 81 07/06/22 18:14 94 07/06/22 18:14 86 07/06/22 18:12 77 07/06/22 18:12 115/70 07/06/22 18:09 94 07/06/22 18:09 81 07/06/22 17:57 18 07/06/22 17:57 36.9 C 18 07/06/22 18:06 94 07/06/22 18:06 82 07/06/22 18:04 93 07/06/22 18:04 79 07/06/22 17:59 94 07/06/22 17:59 81 07/06/22 17:58 80 07/06/22 17:58 116/70 07/06/22 17:54 93 07/06/22 17:54 89 07/06/22 17:49 93 07/06/22 17:50 94 07/06/22 17:49 95 H 07/06/22 17:50 98 H 07/06/22 17:44 93 07/06/22 17:44 89 07/06/22 17:44 114/68 07/06/22 17:39 93 07/06/22 17:39 92 H 07/06/22 17:34 93 07/06/22 17:35 94 07/06/22 17:34 97 H 07/06/22 17:35 88 07/06/22 17:29 94 07/06/22 17:29 96 H 07/06/22 17:15 18 07/06/22 17:15 37.5 C 18 07/06/22 17:28 96 H 07/06/22 17:28 117/71 03/18/23 17:24 93 07/06/22 17:24 88 07/06/22 17:21 94 07/06/22 17:21 88 07/06/22 17:19 93 07/06/22 17:19 92 H 07/06/22 17:16 92 H 07/06/22 17:16 110/65 07/06/22 17:14 94 07/06/22 17:14 95 H 07/06/22 17:14 94 07/06/22 17:14 99 H 07/06/22 17:09 94 07/06/22 17:09 104 H 07/06/22 17:06 94 07/06/22 17:06 93 H 07/06/22 17:06 121/59 L 07/06/22 17:04 94 07/06/22 17:04 89 07/06/22 17:01 93 H 07/06/22 17:01 141/68 H 07/06/22 17:00 94 07/06/22 17:00 93 H 07/06/22 17:00 137/81 07/06/22 16:59 96 07/06/22 16:59 100 H 07/06/22 16:54 97 07/06/22 16:54 95 H 07/06/22 16:49 95 07/06/22 16:49 99 H 07/06/22 16:48 94 07/06/22 16:48 92 H 07/06/22 16:44 94 07/06/22 16:44 91 H 07/06/22 16:25 18 07/06/22 16:25 37.1 C 18 07/06/22 16:41 94 07/06/22 16:41 94 H 07/06/22 16:39 94 07/06/22 16:39 96 H 07/06/22 16:34 94 07/06/22 16:34 93 H 07/06/22 16:29 94 07/06/22 16:29 96 H 07/06/22 16:24 95 07/06/22 16:24 101 H 07/06/22 16:25 94 H 07/06/22 16:25 125/76 07/06/22 16:24 94 07/06/22 16:24 98 H 07/06/22 15:27 18 07/06/22 15:27 36.8 C 18 07/06/22 15:27 92 H 07/06/22 15:27 125/74 07/06/22 14:35 18 07/06/22 14:35 36.8 C 18 07/06/22 14:35 97 H 07/06/22 14:35 134/78 07/06/22 13:32 18 07/06/22 13:32 36.8 C 18 07/06/22 13:33 87 07/06/22 13:33 123/78 07/06/22 12:15 18 07/06/22 12:15 36.6 C 18 Coding Level of Care Code None Diagnoses with 37 weeks completed gestation Z3A.37
[2022-07-07] MEDS ORDERED: HYDROCORTISONE ACETATE 25 MG SUPP PR PRN (01:32)
[2022-07-07] MEDS ORDERED: BENZOCAINE 20% AER SPR 82.5 GM CAN EXT PRN (01:32)
[2022-07-07] MEDS ORDERED: bisacodyL 10 MG SUPP PR PRN (01:32)
[2022-07-07] MEDS ORDERED: DIPHTHERIA/TETANUS/PERTUSSIS 0.5mL SYR/VIAL (Age 7+yrs) IM ONE (01:32)
[2022-07-07] MEDS ORDERED: oxyCODONE/ACETAMINOPHEN 5mg/325mg TAB PO PRN (01:32)
[2022-07-07] MEDS ORDERED: OXYTOCIN 30 UNITS/500 ML BAG IV PRN (01:32)
[2022-07-07] MEDS ORDERED: ACETAMINOPHEN 325 MG TAB PO PRN (01:32)
--- NOTE | 2022-07-07 01:37 | Delivery Summary ---
Vaginal Delivery Summary Date of Service July 07, 2022 Vaginal Delivery Summary and 2nd Degree LAC Pre-operative Diagnosis: at 37 4/7 prom Post-operative Diagnosis: same Procedure: po cytotec pitocin augmentation epidural second degree laceration and repair EBL: 350cc Anesthesia: epidural Procedure: Patient presented to labor and delivery with prom. Got one cytotec po as cx unfavorable. Was then 3cm and pitocin started. She progressed slowly but did become c/c/+2. The patient pushed for a little over an hour to deliver a viable female in lex position. The shoulder and the rest of the was then delivered without difficulty through a loose nuchal cord. The baby was vigorous. The nose and mouth were bulb suctioned and the was placed in the maternal abdomen for drying and attention. Cord was clamped and cut at one minute of life. Cord blood and segment obtained. Placenta delivered spontaneous, intact with a three vessel cord. There was an accessory lobe of the placenta that delivered. Cervix/sulci/rectum were intact. A second degree perineal laceration was repaired in the normal standard fashion. Hemostasis obtained with dilute pitocin and fundal massage. Apgars were pending. Mother and baby doing well at the end of the delivery. [facility] Vaginal Delivery Charge Delivery Type Details: and 2nd Degree LAC
[2022-07-07] MEDS: IBUPROFEN 600 MG TAB PO PRN ×3 (04:32→15:10)
[2022-07-07 06:52] LABS: Hematocrit (blood only) 32.1 % (37.0-47.0); Hemoglobin 10.7 g/dl (12.0-16.0)
[2022-07-07] MEDS: PRENATAL VITAMIN 1 TAB PO SCH (08:57)
[2022-07-07] MEDS: DOCUSATE SODIUM 100 MG CAP PO SCH ×2 (08:57→20:49)
--- NOTE | 2022-07-07 10:04 | Anesthesia Procedure Note ---
Date of Service July 07, 2022 Anesthesia Post Epidural Note Vital Signs Vital Signs: Temp Pulse Resp BP Pulse Ox O2 Del Method 37 C 85 16 120/80 93 Room Air 07/07/22 07:30 07/07/22 07:30 07/07/22 07:30 07/07/22 07:30 07/07/22 02:21 07/07/22 07:30 Pain Intensity Perineal: Pain Intensity: 7 Notes Mental Status: alert / awake / arousable Nausea / Vomiting: adequately controlled Pain: adequately controlled Airway Patency, RR, SpO2: stable & adequate BP & HR: stable & adequate Hydration State: stable & adequate Neuraxial Anesthesia: was administered and sensory block is resolving Anesthetic Complications: no major complications apparent Epidural: Removed without complications and With tip intact
[2022-07-08] MEDS: IBUPROFEN 600 MG TAB PO PRN ×3 (00:16→12:56)
--- NOTE | 2022-07-08 05:42 | Obstetrical Progress Note ---
Date of Service <Kaykay Lyons - Last Filed: 07/08/22 06:36> July 08, 2022 Assessment & Plan <Kaykay Lyons DO - Last Filed: 07/08/22 06:36> (1) Status post vaginal delivery: continue OOB, ambulation, diet as tolerated F/u 6 weeks post appointment <Rika Ferrari MD, FACOG - Last Filed: 07/08/22 07:16> (1) Status post vaginal delivery: Subjective <Kaykay Lyons - Last Filed: 07/08/22 06:36> Delma is a 31 y/o female who is now PPD # 1 following vaginal delivery at 37 5/7 weeks. Reports feeling well overall this morning. Mild abdominal cramping, pain well managed on analgesics. Voiding. Tolerating meals overnight and able to ambulate some. Some persistent lochia with some improvement this morning. Breast feeding. Review of Systems Denies fever, chills, sweats Denies shortness of breath, difficulty breathing, chest pain, palpitations, chest pressure. Denies breast pain. Denies dysuria. Denies headache or changes in vision. Physical Exam <Kaykay Lyons - Last Filed: 07/08/22 06:36> General: Alert, oriented. No acute distress. Cardiac: Regular rate and rhythm, no murmurs/rubs/gallops. Respiratory: Clear to auscultation bilaterally a/p, no wheezes/rales/rhonchi. No increased work of breathing. Symmetrical chest rise. No respiratory distress. Abdomen: Soft, nontender, nondistended. Uterus: Uterine fundus firm, palpable 2 cm below umbilicus. Lower Extremities: No lower extremity edema or swelling. Results & Data <Kaykay Lyons - Last Filed: 07/08/22 06:36> Vital Signs (Past 12 Hours) Vital Signs Temp Pulse Resp BP Pulse Ox O2 Del Method 07/08/22 00:10 36.5 C 91 H 16 115/75 98 Room Air 07/07/22 19:30 36.5 C 80 18 122/82 98 Room Air <Rika Ferrari MD, FACOG - Last Filed: 07/08/22 07:16> Co-Signing Physician Notes Resident Physician Supervision Note: I interviewed and examined the patient. Discussed with Dr. Lyons and agree with findings and plan as documented in the note. Any exceptions or clarifications are listed here: Doing well. Plan d/c today. Instructions given. Documented By: Rika Ferrari MD, FACOG Resident Activity Tracking <Kaykay Lyons, DO - Last Filed: 07/08/22 06:36> Resident Involvement: Resident Care Provided Care Provided: OB Delivery (post )
[2022-07-08] MEDS: PRENATAL VITAMIN 1 TAB PO SCH (08:06)
[2022-07-08] MEDS: DOCUSATE SODIUM 100 MG CAP PO SCH (08:06)
[2022-07-08] MEDS ORDERED: bisacodyL 5 MG TABEC PO SCH (20:00)
== END 2022-07-08 14:00 | disposition home or self-care (01) | DRG 807 ==
LOC: OPB 08:51 → 4S1 08:52 → 4E2 07-07 04:26